=== PATIENT | female | born 1975 | race Caucasian/White ===

== ENCOUNTER 2019-08-22 14:24 | Emergency (ER) | payer MEDICAID, OTHER ==
[~2019-08-22] VITALS: Ht 157.5 cm; Wt 71.4 kg
[~2019-08-22 14:24] MED LIST: PREN1TAB52 PO
[2019-08-22] MEDS ORDERED: ACET-2247 PO (14:51)
[2019-08-22 16:50] VITALS: BP 145/83
== END 2019-08-22 17:50 | disposition home or self-care (01) ==
LOC: EMS 14:25
DX: M79.671 Pain in right foot (principal); R03.0 Elevated blood-pressure reading, without diagnosis of hypertension

== ENCOUNTER 2021-05-20 19:39 | Emergency (ER) | payer MEDICAID ==
[~2021-05-20] VITALS: Ht 152.4 cm; Wt 75.0 kg
[~2021-05-20 19:39] MED LIST changes: +ACET-2247 PO; -PREN1TAB52 PO
[2021-05-20 20:00] VITALS: BP 140/80
== END 2021-05-20 22:25 | disposition left against medical advice (07) ==
LOC: EMS 19:52
DX: S81.851A Open bite, right lower leg, initial encounter (principal); Z53.21 Procedure and treatment not carried out due to patient leaving prior to being seen by health care provider; W54.0XXA Bitten by dog, initial encounter; Y93.89 Activity, other specified; Y92.89 Other specified places as the place of occurrence of the external cause; Y99.8 Other external cause status